=== PATIENT | male | born 1980 | race Caucasian/White ===

== ENCOUNTER 2023-05-13 22:11 | Emergency (ER) | payer MEDICARE, OTHER, SELFPAY ==
[2023-05-13 22:21] VITALS: BP 123/79
--- NOTE | 2023-05-13 22:21 | ED.GENMED ---
History of Present Illness
General
Chief Complaint: Seizure
Source: family
Exam Limitations: other (developmentally delayed )
Time Seen by Provider: 05/13/23 22:14
Travel History
Have you had any contact with someone who has COVID-19?: Unable to Answer
Do you have any symptoms of coronavirus? Fever > 100 degrees, chills, cough, shortness of breath, sore throat, loss of taste or smell, muscle aches, or headache?: No
History of Present Illness
History of Present Illness:
Patient is a 43-year-old male with history of seizures, developmental delay brought to the ER by EMS. Patient lives with family family reports they heard a loud thump and noticed patient was on the wood floor face down on the living room very
stiff and drooling. Brother laid him on his side.
They report patient does have a history of seizures however his last seizure was in 1998. He is on Tegretol. Brother reports no incontinence of bowel or bladder. [id number] does report the patient does take his own medication.
Patient is followed by neurologist Dr. Ko and has appt in June 2023.
Pt presents awake alert answering questions follows commands. Has no complaints.
Past History
Past History
ED Past Medical History: Other (epilepsy)
Patient has exhibited threatening behavior?: No
Social History
Tobacco: Non-smoker
Alcohol: None
Drug: None
Personal: Single
Living: with family
Review of Systems
Review of Systems
Allergies reviewed?: Yes
Other source history: family
All Other Systems: ROS reviewed and negative except as documented in HPI and ROS
Constitutional: Reports no symptoms; Denies fever, fatigue or chills
EENT: Reports no symptoms and other (denies injury )
Respiratory: Reports no symptoms
ABD/GI: Reports no symptoms
: Reports no symptoms; Denies incontinence
Musculoskeletal: Reports no symptoms
Skin: Reports no symptoms
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
Psychiatric: Reports no symptoms
Phy Exam
General Physical Exam
General Presentation: no apparent distress
General age: appears stated age
General Skin: warm and dry
General Habitus: normal
General Mental: alert
General Hydration: appears well hydrated
ENT Exam
ENT Exam: EOMI and other ( no lip/mouth abrasion/laceration )
Cardiovascular Exam
Cardiovascular Exam: regular rate/rhythm, no murmur and normal peripheral pulses
Pulmonary Exam
Pulmonary Exam: lungs clear and no respiratory distress
Neurological Exam
Neurological Exam: alert and other (Patient is awake alert answering questions moves all extremities)
Musculoskeletal Exam
Musculoskeletal Exam: full ROM and other (No obvious head injury on exam)
Skin Exam
Skin Exam: normal color and warm/dry
Psychiatric Exam
Psychiatric Exam: normal mood/affect
Course
Orders/Labs/Results
Orders:
Orders
05/13/23 22:22
Electrocardiogram (*1) Stat
Reason for Study: Other
Other Reason for Exam: neuro symptoms
CT Head W/o Iv Contrast Urgent
Comment:
Reason For Exam: trauma/seizure
Cardiac Monitoring- Treatment ONCE
EKG- Treatment ONCE
IV Insert/Care/Rem.- Treatment PRN
05/13/23 22:36
Complete Blood Count/With Diff Urgent
Comprehensive Metabolic Panel Urgent
Tegretol (Carbamazepine) Urgent
Abnormal Lab Results
05/13/23
22:36
RBC 4.60 L 10^6/uL
(4.70-6.10)
MCH 32.0 H pg
(27.0-31.0)
Chloride 97 L mmol/L
(98-107)
BUN 7 L mg/dl
(9-20)
Alkaline Phosphatase 151 H U/L
(38-126)
05/13/23 22:36
05/13/23 22:36
Vital Signs
Initial and Last Documented VS:
Initial Vital Signs
Temp Pulse Resp Pulse Ox
98.7 F 94 20 96
05/13/23 22:17 05/13/23 22:17 05/13/23 22:17 05/13/23 22:17
Last Documented Vital Signs
Temp Pulse Resp BP Pulse Ox
98.7 F 79 17 117/70 95
05/13/23 22:17 05/14/23 00:00 05/14/23 00:00 05/14/23 00:00 05/14/23 00:00
Litigator consulted with Physician
Litigator consulted with physician?: Yes
Name of Physician Consulted: talia
MDM/Problems Addressed
Differential Diagnosis Includes:
Not limited to syncope, seizure
MDM/Problems Addressed:
Patient is a 43-year-old male with known seizure disorder, developmental delay lives with family. Family heard a noise and patient was facedown on the floor stiff. Brother rolled him on his side. Patient had no obvious seizure activity but was
drooling. Patient's last seizure was 1998. He is followed by local neurologist and is on carbamazepine. Patient presents awake alert no acute distress he is awake alert. Brother reports patient seemed a little out of it initially. Patient has
been monitored here he is awake alert he is able to converse. With injury and fall CT head was done and negative however there is no obvious head injury on exam. Patient has had no seizure activity here. His vitals are stable. He has not had any
recent illness and is afebrile with a normal white count labs are unremarkable and carbamazepine level is normal at 6.1. Case reviewed with ED physician will DC with outpatient instructions to call neurology tomorrow for evaluation the next several
days.
Chronic conditions affecting care:
known seizure history
*Radiology
Radiology exam reviewed: radiology read reviewed (ct head neg )
*Pulse Oximetry
Patient hypoxic: no
*EKG
Interpreted by ED Provider?: Yes
Interpretation: normal
Heart Rate: 83
Rate: normal
Rhythm: sinus
Ischemia: no ischemia
*Critical Care Note
Total Time (30-74mins, 75-104mins- exclusive of procedures): Not Applicable
ED Attending Note
-
Portions of this chart may have been created with voice recognition software.� Occasional wrong word or��sound alike� substitutions may have occurred due to the inherent limitations of voice recognition software.
Discharge Plan
Departure
Patient Disposition: Home (Routine Discharge)
Date of Disposition: 05/14/23
Time of Disposition: 00:24
Patient with high blood pressure during this ER visit?: No
Condition: Fair
Covid-19: Not Applicable
Discharge Problem:
Seizure
Instructions: Seizures, Adult (DC)
Prescriptions:
No Action
carbamazepine 100 MG tablet extended release 12 hr
600 mg PO DAILY
carbamazepine 100 MG tablet extended release 12 hr
700 mg PO HS
Referrals:
Harrison Mcfarland MD [Family Provider] -
Activity Restrictions/Additional Instructions:
CAll your neurologist tomorrow to make appointment in the next 2-3 days. Return if any worsening of symptoms . Continue to take current seizure medicine.
Interventions
Interventions:
*Risk Screen - Suicide Last Done: 05/13/23 22:20
*General Assessment Last Done: 05/13/23 22:14
*Neglect/Abuse Screening Last Done: 05/13/23 22:14
ED- Fall Risk Assessment Last Done: 05/13/23 22:14
*ED COVID-19 Vaccine History Last Done: 05/13/23 22:14
ED- Cardiac Assessment Last Done: 05/13/23 22:49
ED- Neurological Assessment Last Done: 05/13/23 22:49
ED- Pulmonary Assessment Last Done: 05/13/23 22:49
[2023-05-13 22:44] LABS: % Eosinophils 2.1 % (0-6); % Immature Granulocytes 0.4 % (0-0.5); % Lymphocytes 34.8 % (20.5-51.1); % Monocytes 7.9 % (1.7-9.3); % Neutrophils 53.8 % (42.2-75.2); Absolute Basophils 0.1 10^3/uL (0-0.2); Absolute Eosinophils 0.2 10^3/uL (0-0.7); Absolute Lymphocytes 2.5 10^3/uL (1.2-3.4); Absolute Monocytes 0.6 10^3/uL (0.1-0.6); Absolute Neutrophils 3.9 10^3/uL (1.4-6.5); Hematocrit 40.1 % (39.0-52.0); Hemoglobin 14.7 g/dL (13.0-18.0); Mean Corp Hgb Conc. 36.7 g/dL (33.0-37.0); Mean Corpuscular Volume 87.2 fL (80.0-94.0); Mean Platelet Volume 8.6 fL (7.4-10.4); Nucleated Red Blood Cells % 0 % (-); Platelet Count 264 10^3/uL (130-400); Red Cell Dist. Width 11.8 % (11.5-14.5); White Blood Cell Count 7.2 10^3/uL (4.8-10.8)
[2023-05-13 22:57] LABS: ALT (SGPT) 22 U/L (0-50); AST (SGOT) 29 U/L (17-59); Albumin 4.7 g/dl (3.5-5.0); Alkaline Phosphatase 151 U/L (38-126); Blood Urea Nitrogen 7 mg/dl (9-20); Calcium 9.4 mg/dl (8.4-10.2); Carbon Dioxide 23 mmol/L (22-30); Chloride 97 mmol/L (98-107); Glucose 87 mg/dl (70-99); Potassium 3.6 mmol/L (3.5-5.1); Sodium 135 mmol/L (135-145); Total Bilirubin 0.5 mg/dl (0.2-1.3); Total Protein 7.5 g/dl (6.3-8.2); eGFR > 60.00
[2023-05-13 23:00] VITALS: BP 111/69
[2023-05-13 23:02] LABS: Tegretol (Carbamazepine) 6.1 ug/ml (4-12)
[2023-05-14] VITALS: BP 117/70
== END 2023-05-14 01:34 | disposition home or self-care (01) ==
LOC: EMR 22:11
PROVIDERS: Nurse Practitioner; EMERGENCY PHYSICIAN Emergency Medicine; FAMILY PHYSICIAN Family Medicine
DX: G40.909 Epilepsy, unspecified, not intractable, without status epilepticus (principal); R62.50 Unspecified lack of expected normal physiological development in childhood
CPT/HCPCS: 99284; 70450; 80053; 80156; 85025; 93005